=== PATIENT | female | born 1935 | race Caucasian/White ===

== ENCOUNTER → 2016-10-23 | Outpatient (REF) | payer MEDICARE | LOC: M LAB REF 15:59 | PROVIDERS: ATTEND Nurse Practitioner Family | DX: L08.9 Local infection of the skin and subcutaneous tissue, unspecified (principal) ==

== ENCOUNTER → 2017-06-10 | Outpatient (REF) | payer MEDICARE | LOC: M LAB REF 15:38 | PROVIDERS: ATTEND Nurse Practitioner Family | DX: L08.9 Local infection of the skin and subcutaneous tissue, unspecified (principal) ==

== ENCOUNTER → 2017-12-12 | Outpatient (REF) | payer MEDICARE | LOC: M LAB REF 15:28 | DX: L08.9 Local infection of the skin and subcutaneous tissue, unspecified (principal) | CPT/HCPCS: 87186 ==

== ENCOUNTER → 2017-12-26 | Outpatient (REF) | payer MEDICARE | LOC: M LAB REF 15:17 | DX: L08.9 Local infection of the skin and subcutaneous tissue, unspecified (principal) | CPT/HCPCS: 87186 ==